=== PATIENT | male | born 1975 | race African-American/Black ===

== ENCOUNTER 2017-05-03 16:48 | Emergency (ER) | payer BC, OTHER ==
[2017-05-03] MEDS ORDERED: KETOROLAC TROMETHAMINE INJ 30 MG/ML VIAL IV ONE (16:59)
[2017-05-03] MEDS ORDERED: MORPHINE SULFATE INJ 10 MG/ML VIAL IV ONE (16:59)
[2017-05-03] MEDS ORDERED: SODIUM CHLORIDE 0.9% 1000ML 1,000 ML IVS ONE (17:00)
--- NOTE | 2017-05-03 17:36 | RAD ---
EXAM DESCRIPTION: Chest,1 View CLINICAL HISTORY: pain COMPARISON: None. FINDINGS: There is consolidation at the left lateral lung base. Cardiac silhouette is within normal limits. There is no other focal parenchymal or pleural disease. Visualized osseous structures are within normal limits. IMPRESSION: Left lung base consolidation. 

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
--- NOTE | 2017-05-03 17:45 | CT ---
EXAM DESCRIPTION: Head CLINICAL HISTORY: pain COMPARISON: None Available TECHNIQUE: Contiguous axial CT images of the head were obtained. Coronal and sagittal reconstructions were created from the axial data. This exam was performed according to our departmental dose-optimization program, which includes automated exposure control, adjustment of the mA and/or kV according to patient size and/or use of iterative reconstruction technique. FINDINGS: There is fluid in the right maxillary sinus. Mucosal thickening involves the paranasal sinuses. There is no evidence of acute mass, mass effect, midline shift or hemorrhage. The ventricles and extra-axial CSF spaces are unremarkable. The brain parenchyma appears normal for the patient's age. No acute abnormalities of the bones is seen. IMPRESSION: Acute paranasal sinusitis. No acute intracranial abnormality. Electronically signed by: Kilo Lindsey 05/03/2017 5:43 PM [facility]
--- NOTE | 2017-05-03 17:47 | CT ---
EXAM DESCRIPTION: CT CERVICAL SPINE CLINICAL HISTORY: pain COMPARISON: None Available. TECHNIQUE: Contiguous axial images of the cervical spine were obtained followed by reconstruction images.This exam was performed according to our departmental dose-optimization program, which includes automated exposure control, adjustment of the mA and/or kV according to patient size and/or use of iterative reconstruction technique. FINDINGS: There are degenerative changes. The palatine tonsils are moderately enlarged. There is mild enlargement of the adenoids. There is fluid in the right maxillary sinus. Mucosal thickening involves the paranasal sinuses. There is no acute fracture or subluxation. The prevertebral soft tissues are within normal limits. IMPRESSION: Acute paranasal sinusitis. No acute fracture or subluxation. 

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
[2017-05-03 19:11] VITALS: BP 121/68; TEMP 98.2; O2SAT 98
[2017-05-03] MEDS ORDERED: TETANUS,DIPHTHERIA,PERTUSSIS 1 EA SYG IM ONE (19:11)
== END 2017-05-03 20:00 | disposition short-term general hospital (02) ==
LOC: ER 16:48
DX: S27.321A Contusion of lung, unilateral, initial encounter (principal); S27.0XXA Traumatic pneumothorax, initial encounter; S22.42XA Multiple fractures of ribs, left side, initial encounter for closed fracture; I10 Essential (primary) hypertension; Z87.891 Personal history of nicotine dependence; Z98.1 Arthrodesis status; Z23 Encounter for immunization; V68.5XXA Driver of heavy transport vehicle injured in noncollision transport accident in traffic accident, initial encounter; Y92.410 Unspecified street and highway as the place of occurrence of the external cause; Y99.0 Civilian activity done for income or pay
CPT/HCPCS: 36415; 70450; 71010; 71250; 72125; 74176; 80053; 80320; 84484; 85025; 90471; 90715; 93005; J1885; J2270; J7030